=== PATIENT | female | born 1995 | race Caucasian/White ===

== ENCOUNTER 2019-01-22 20:54 | Emergency (ER) | payer OTHER ==
[2019-01-22] MEDS ORDERED: HYDROcod/ACETAM 5/325 MG TABLET PO STA (21:33)
--- NOTE | 2019-01-22 21:36 | ED Physician Documentation ---
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 She hit her head, no specific headache now and no loss of consciousness. She feels like she uriel herself. The main site of pain is the left lower ribs anterolaterally. It hurts to take a deep breath or laugh. There is no possibility of .) Review of Systems Constitutional: reports: Reviewed and negative Throat: reports: Reviewed and negative Cardiac: reports: Chest pain / pressure. denies: Palpitations, Pedal edema, Calf pain Respiratory: denies: Dyspnea, Cough PD PAST MEDICAL HISTORY - Past Medical History Past Medical History: No - Past Surgical History Past Surgical History: No - Allergies Allergies/Adverse Reactions: Allergies Allergy/AdvReac Type Severity Reaction Status Date / Time No Known Drug Allergies Allergy Verified 01/22/19 20:58 - Social History Does the pt smoke?: No Smoking Status: Never smoker Does the pt drink ETOH?: Yes Does the pt have substance abuse?: No - Immunizations Immunizations are current?: No Immunizations: TDAP >10years/unknown - POLST Patient has POLST: No PD ED PE NORMAL - Vitals Vital signs reviewed: Yes - General General: Alert and oriented X 3, No acute distress - HEENT HEENT: PERRL, EOMI - Neck Neck: Other (Very mild mid C-spine tenderness) - Cardiac Cardiac: RRR, No murmur - Respiratory Respiratory: No respiratory distress, Clear bilaterally, Other (Tender to the lower anterolateral ribs on the left without corresponding abdominal tenderness.) - Abdomen Abdomen: Soft, Non tender - Back Back: No CVA TTP, No spinal TTP - Derm Derm: Normal color, Warm and dry - Extremities Extremities: No edema, No calf tenderness / cord - Neuro Neuro: Alert and oriented X 3, Normal speech Results - Vitals Vitals: Vital Signs - 24 hr 01/22/19 01/22/19 20:58 22:46 Temperature 36.6 C 36.6 C Heart Rate 92 85 Respiratory 16 12 Rate Blood Pressure 132/92 H 123/73 O2 Saturation 97 99 Oxygen O2 Source Room air - Rads (name of study) C spine XR and L ribs and chest XR Radiology: EMP read contemporaneously (Normal) Departure - Departure Disposition: 01 Home, Self Care Clinical Impression: Contusion of chest wall, Neck sprain Condition: Good Record reviewed to determine appropriate education?: Yes Instructions: ED Contusion Chest Wall Comments: Ibuprofen as needed for pain, follow-up with your doctor in 1 week if not better. Return for new or worsening symptoms. Forms: Activity restrictions Discharge Date/Time: 01/22/19 22:48
--- NOTE | 2019-01-22 22:33 | XRAY Report ---
Reason: NECK PAIN Procedure Date: 01/22/2019 Accession Number: [id number] / [id number] Procedure: XR - Cervical Spine 2 View CPT Code: FULL RESULT: EXAM: CERVICAL SPINE RADIOGRAPHY EXAM DATE: 01/22/2019 09:59 PM. CLINICAL HISTORY: Neck pain ,fall. COMPARISONS: None. TECHNIQUE: 3 views. FINDINGS: Alignment: Normal. No spondylolisthesis or scoliosis. Bones: The cervical vertebral bodies and posterior elements are well visualized from the skull base through C7-T1. No fractures or bone lesions. Disks: Normal. Disk heights are maintained. Facets: No degenerative disease. Soft Tissues: Normal. No prevertebral soft tissue swelling. The visualized lung apices are clear. IMPRESSION: Normal cervical spine radiography. RADIA
--- NOTE | 2019-01-22 22:34 | XRAY Report ---
Reason: CHEST WALL INJ Procedure Date: 01/22/2019 Accession Number: [id number] / [id number] Procedure: XR - Ribs w/PA Chest LT CPT Code: FULL RESULT: EXAM: LEFT RIB RADIOGRAPHY. EXAM DATE: 01/22/2019 09:59 PM. CLINICAL HISTORY: Chest wall injury. Left rib pain. COMPARISON: None. TECHNIQUE: 1 view of the chest and 2 views of the ribs. FINDINGS: Bones: No displaced rib fracture seen. Lungs: No focal opacities. No gross pneumothorax or large effusion. Mediastinum: Heart and mediastinal contours are unremarkable. Other: None. IMPRESSION: No displaced rib fracture or complication from rib fracture seen. RADIA
[2019-01-22] MEDS ORDERED: HYDROcod/ACET 5/325 Prepack 4 PO STA (22:39)
[2019-01-22 22:47] VITALS: BP 123/73
== END 2019-01-22 22:48 | disposition home or self-care (01) ==
LOC: ED 20:54 → EDSEX 20:54 → ED 22:48
DX: S13.9XXA Sprain of joints and ligaments of unspecified parts of neck, initial encounter (principal); S20.212A Contusion of left front wall of thorax, initial encounter; V00.311A Fall from snowboard, initial encounter; Y93.23 Activity, snow (alpine) (downhill) skiing, snowboarding, sledding, tobogganing and snow tubing
CPT/HCPCS: 71101; 72040; 96372; 96374; 96376; 99284; A9270

== ENCOUNTER 2019-01-31 07:49 | Emergency (ER) | payer OTHER ==
[2019-01-31] MEDS ORDERED: DEXAMETHASONE 10 MG/ML VIAL PO STA (08:14)
--- NOTE | 2019-01-31 08:16 | ED Physician Documentation ---
PD HPI URI - Stated complaint Stated Complaint: COUGHING/RIB PX/FEVER - Chief complaint Chief Complaint: Resp - History obtained from History obtained from: Patient - History of Present Illness Timing - onset: How many days ago (3) Timing duration: Days (3) Timing details: Gradual onset, Still present Associated symptoms: Fever, Nasal congestion, Rhinorrhea, Sore throat, Dry cough, Chest pain, Dyspnea Contributing factors: Sick contact Improves by: Rest, Medication Similar symptoms before: Diagnosis (URI) Recently seen: Emergency Dept - Additional information Additional information: 23-year-old female has recently been seen in the emergency department for a chest wall contusion from a snowboarding accident and she is now developed a cough and congestion and the area where she contused her chest is hurting a lot. She is having some trouble breathing because of this. She is been using her inhaler and that has not helped a lot. She is has had a slight fever associated with all this. She has had 2 respiratory infections this winter the other to have resolved previously. Review of Systems Constitutional: reports: Fever Eyes: denies: Decreased vision Ears: denies: Ear pain Nose: reports: Rhinorrhea / runny nose, Congestion Throat: reports: Sore throat Cardiac: reports: Chest pain / pressure. denies: Palpitations, Pedal edema, Calf pain Respiratory: reports: Dyspnea, Cough GI: denies: Abdominal Pain, Nausea, Vomiting : denies: Dysuria, Frequency PD PAST MEDICAL HISTORY - Past Surgical History Past Surgical History: No - Present Medications Home Medications: Ambulatory Orders Medication Instructions Recorded Confirmed Amox/Clav 875/125 [Augmentin] 1 each PO Q12H #20 tablet 01/31/19 Benzonatate [Tessalon Perle] 100 - 200 mg PO TID PRN #30 capsule 01/31/19 Hydrocodone/Acetaminophen 1 - 2 each PO Q6H PRN #14 tablet 01/31/19 [Hydrocodon-Acetaminophen 5-325] - Allergies Allergies/Adverse Reactions: Allergies Allergy/AdvReac Type Severity Reaction Status Date / Time No Known Drug Allergies Allergy Verified 01/22/19 20:58 - Social History Does the pt smoke?: No Smoking Status: Never smoker Does the pt drink ETOH?: Yes Does the pt have substance abuse?: No - Immunizations Immunizations are current?: No Immunizations: TDAP >10years/unknown - POLST Patient has POLST: No PD ED PE NORMAL - Vitals Vital signs reviewed: Yes (hypertensive ) - General General: Alert and oriented X 3, Well developed/nourished, Other (coughing paroxysms are heard down the gant ) - HEENT HEENT: Atraumatic, PERRL, EOMI, Pharynx benign, Other (both TM's are mildly inflamed the right is worse than the left and there is distortion of the landmarks. ) - Neck Neck: Supple, no meningeal sign, No bony TTP - Cardiac Cardiac: RRR, No murmur - Respiratory Respiratory: No respiratory distress, Clear bilaterally, Other (There is tenderness to the lateral chest wall on the left lower. ) - Abdomen Abdomen: Soft, Non tender - Back Back: No CVA TTP, No spinal TTP - Derm Derm: Normal color, Warm and dry, No rash - Extremities Extremities: No deformity, No edema - Neuro Neuro: Alert and oriented X 3, digital marketing lead 2-12 intact, No motor deficit, No sensory deficit, Normal speech Eye Opening: Spontaneous Motor: Obeys Commands Verbal: Oriented GCS Score: 15 - Psych Psych: Normal mood, Normal affect Results - Vitals Vitals: Vital Signs - 24 hr 01/31/19 07:54 Temperature 36.2 C L Heart Rate 90 Respiratory 18 Rate Blood Pressure 127/87 H O2 Saturation 97 Oxygen O2 Source Room air PD MEDICAL DECISION MAKING - ED course Complexity details: reviewed old records, reviewed results, re-evaluated patient, considered differential, d/w patient ED course: 21-year-old female with a cough and congestion for the past several days as increased pain over an area where she has had a chest wall contusion and she has otitis on examination. She is administered dexamethasone 10 mg orally and will place her on some Augmentin and provide some analgesia as well as cough suppressant. Departure - Departure Disposition: 01 Home, Self Care Clinical Impression: Chest wall pain Otitis media Qualifiers: Otitis media type: suppurative Chronicity: acute Laterality: bilateral Recurrence: not specified as recurrent Spontaneous tympanic membrane rupture: without spontaneous rupture Qualified Code(s): H66.003 - Acute suppurative otitis media without spontaneous rupture of ear drum, bilateral Condition: Stable Instructions: ED Contusion Chest Wall, ED Otitis Media Serous Adult Follow-Up: Varinder Turner MD [Primary Care Provider] - Prescriptions: Amox/Clav 875/125 [Augmentin] 1 each PO Q12H #20 tablet Benzonatate [Tessalon Perle] 100 - 200 mg PO TID PRN #30 capsule PRN Reason: Cough Hydrocodone/Acetaminophen [Hydrocodon-Acetaminophen 5-325] 1 - 2 each PO Q6H PRN #14 tablet PRN Reason: pain Forms: Activity restrictions
[2019-01-31] MEDS ORDERED: CHERRY SYRUP 10 ML UDC PO ONE (08:30)
[2019-01-31 08:34] VITALS: BP 111/65
== END 2019-01-31 08:34 | disposition home or self-care (01) ==
LOC: ED 07:49
DX: H66.003 Acute suppurative otitis media without spontaneous rupture of ear drum, bilateral (principal); R07.89 Other chest pain; R05 Cough; R06.00 Dyspnea, unspecified; R09.81 Nasal congestion
CPT/HCPCS: 99283

== ENCOUNTER 2019-02-13 07:34 | Outpatient (CLI) | payer OTHER ==
--- NOTE | 2019-02-13 14:42 | MRI Report ---
Reason: LOW BACK PAIN Procedure Date: 02/13/2019 Accession Number: [id number] / [id number] Procedure: MRI - Lumbar Spine W/O CPT Code: FULL RESULT: EXAM: MRI LUMBAR SPINE WITHOUT CONTRAST EXAM DATE: 02/13/2019 08:54 AM. CLINICAL HISTORY: LOW BACK PAIN. COMPARISON: None. TECHNIQUE: Multiplanar, multisequence T1-weighted and fluid-sensitive sequences of the lumbar spine from T12 to S1 without contrast. Other: None. FINDINGS: Spinal Canal: The conus terminates at L1-L2. The conus medullaris and cauda equina are unremarkable. Alignment: No scoliosis or spondylolisthesis. Bone Marrow: Five [id number] lumbar vertebral bodies are assumed. No gross fractures or bone lesions. No bone marrow replacement. Disk Levels/Facets: T12-L1: Unremarkable. L1-L2: Unremarkable. L2-L3: Unremarkable. L3-L4: Unremarkable. L4-L5: Unremarkable. L5-S1: Unremarkable. Musculature: Normal. No edema or fatty atrophy. Other: The partially visualized retroperitoneum is unremarkable. IMPRESSION: Unremarkable lumbar spine MRI. Comment: The following findings are so common in adults without low back pain that while we report their presence, they must be interpreted with caution and in the context of the clinical situation. (Reference Dimasvik et al, Spine 2001) Prevalence of findings in patients without low back pain: Disk degeneration (any evidence): 92% Disk desiccation/T2 signal loss: 83% Disk height loss: 56% Disk bulge: 64% Disk protrusion: 32% Annular tear/high intensity zone: 38% RADIA
== END 2019-02-13 07:35 | disposition home or self-care (01) ==
LOC: EDSEX → DI 07:34
DX: M54.5 Low back pain (principal)
CPT/HCPCS: 72148

== ENCOUNTER 2019-02-13 11:03 | Outpatient (CLI) | payer OTHER | END 2019-02-13 11:04 | disposition home or self-care (01) | LOC: EDSEX → SC 11:03 | PROVIDERS: ATTEND Internal Medicine Pulmonary Disease | DX: G47.00 Insomnia, unspecified (principal); G47.8 Other sleep disorders | CPT/HCPCS: 99203; 99212 ==

== ENCOUNTER 2019-08-24 14:55 | Emergency (ER) | payer OTHER ==
--- NOTE | 2019-08-24 15:36 | ED Physician Documentation ---
History of Present Illness - Stated complaint Stated Complaint: RHR/DIZZY - Chief complaint Chief Complaint: Cardiac - History obtained from History obtained from: Patient - History of Present Illness Timing: How many weeks ago (1) Pain level max: 0 Pain level now: 0 (23-year-old female states that she has had intermittent heart palpitations for the past week or so. Is on Concerta and recently had her dose increased. No recent travel or surgeries. She uses Mirena for an IUD. She has been seen at [facility] several times for this. She has been in a sinus tachycardia when seen. No history of blood clots. Better with rest, worse with exertion.) Review of Systems Ten Systems: 10 systems reviewed and negative Constitutional: denies: Fever, Chills Throat: denies: Sore throat Cardiac: reports: Palpitations. 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: None : None HEENT: None Psych: ADD/ADHD Musculoskeletal: None Derm: None - Past Surgical History Past Surgical History: No - Present Medications Home Medications: Ambulatory Orders Medication Instructions Recorded Confirmed Methylphenidate HCl [Concerta] 54 mg PO DAILY 08/24/19 08/24/19 - Allergies Allergies/Adverse Reactions: Allergies Allergy/AdvReac Type Severity Reaction Status Date / Time No Known Drug Allergies Allergy Verified 08/24/19 15:05 - Social History Does the pt smoke?: No Smoking Status: Never smoker Does the pt drink ETOH?: Yes Does the pt have substance abuse?: No - Immunizations Immunizations are current?: Yes Immunizations: TDAP >10years/unknown - POLST Patient has POLST: No PD ED PE NORMAL - Vitals Vital signs reviewed: Yes - General General: Alert and oriented X 3, No acute distress, Well developed/nourished - HEENT HEENT: Moist mucous membranes - Neck Neck: Supple, no meningeal sign - Cardiac Cardiac: RRR, No murmur, Strong equal pulses - Respiratory Respiratory: No respiratory distress, Clear bilaterally - Abdomen Abdomen: Soft, Non tender, Non distended - Derm Derm: Warm and dry - Extremities Extremities: No edema, No calf tenderness / cord - Neuro Neuro: Alert and oriented X 3 - Psych Psych: Normal mood, Normal affect Results - Vitals Vitals: Vital Signs - 24 hr 08/24/19 08/24/19 08/24/19 14:56 15:20 15:22 Temperature 36.3 C L Heart Rate 95 94 Respiratory 20 15 Rate Blood Pressure 124/82 H 116/84 H Blood Pressure 116/84 H [Left] O2 Saturation 100 98 08/24/19 08/24/19 15:35 16:05 Temperature Heart Rate 89 86 Respiratory 16 15 Rate Blood Pressure 132/81 H 129/70 Blood Pressure [Left] O2 Saturation 100 99 Oxygen O2 Source Room air - EKG (time done) 1505 Rate: Rate (enter#) (105) Rhythm: Sinus tachycardia [place]: Normal Intervals: Normal [place] QRS: Normal Ischemia: Normal ST segments - Labs Labs: Laboratory Tests 08/24/19 08/24/19 08/24/19 16:03 16:03 16:03 WBC 6.6 RBC 4.31 Hgb 13.2 Hct 38.5 MCV 89.3 MCH 30.6 MCHC 34.3 RDW 11.8 L Plt Count 226 MPV 11.0 H Neut # (Auto) 3.3 Lymph # (Auto) 2.7 Arroyo # (Auto) 0.6 Eos # (Auto) 0.1 Baso # (Auto) 0.0 Absolute Nucleated RBC 0.00 Nucleated RBC % 0.0 D-Dimer < 200.0 L Sodium 137 Potassium 3.2 L Chloride 104 Carbon Dioxide 23 Anion Gap 10.0 BUN 12 Creatinine 0.6 Estimated GFR (MDRD) 125 Glucose 93 Calcium 9.1 Total Bilirubin 0.7 AST 17 ALT 14 Alkaline Phosphatase 58 Troponin I High Sens Total Protein 7.1 Albumin 4.5 Globulin 2.6 Albumin/Globulin Ratio 1.7 Lipase 25 TSH Free T4 08/24/19 08/24/19 16:03 16:03 WBC RBC Hgb Hct MCV MCH MCHC RDW Plt Count MPV Neut # (Auto) Lymph # (Auto) [place]royo # (Auto) Eos # (Auto) Baso # (Auto) Absolute Nucleated RBC Nucleated RBC % D-Dimer Sodium Potassium Chloride Carbon Dioxide Anion Gap BUN Creatinine Estimated GFR (MDRD) Glucose Calcium Total Bilirubin AST ALT Alkaline Phosphatase Troponin I High Sens < 2.3 L Total Protein Albumin Globulin Albumin/Globulin Ratio Lipase TSH 0.97 Free T4 0.91 - Rads (name of study) cxr Radiology: Prelim report reviewed, EMP read contemporaneously, See rad report (normal) PD MEDICAL DECISION MAKING - ED course Complexity details: reviewed results, re-evaluated patient, considered differential, d/w patient ED course: Patient presents to the emergency department with palpitations. Seems to be worse since taking her Concerta. We will have her decrease to her prior dose and follow-up with her doctor. No acute findings on laboratory testing, EKG or chest x-ray. No evidence of pulmonary embolus. No evidence of thyroid issues. No evidence of acute coronary syndrome. Patient counseled regarding signs and symptoms for which I believe and urgent re-evaluation would be necessary. Patient with good understanding of and agreement to plan and is comfortable going home at this time This document was made in part using voice recognition software. While efforts are made to proofread this document, sound alike and grammatical errors may occur. Departure - Departure Disposition: 01 Home, Self Care Clinical Impression: Palpitation Condition: Good Instructions: ED Palpitations Follow-Up: ARIELA CHRISTIAN MD [Primary Care Provider] - Within 1 week Comments: Your tests are normal today. Return if you worsen. You should talk to your doctor about decreasing your concerta dose or changing your medications. Discharge Date/Time: 08/24/19 17:15
--- NOTE | 2019-08-24 15:54 | XRAY Report ---
Reason: dyspnea Procedure Date: 08/24/2019 Accession Number: [id number] / [id number] Procedure: XR - Chest 2 View X-Ray CPT Code: 84486 FULL RESULT: EXAM: CHEST RADIOGRAPHY EXAM DATE: 08/24/2019 03:30 PM. CLINICAL HISTORY: Dyspnea. COMPARISON: None. TECHNIQUE: 2 views. FINDINGS: Lungs/Pleura: No focal opacities evident. No pleural effusion. No pneumothorax. Normal volumes. Mediastinum: Heart and mediastinal contours are unremarkable. Other: None. IMPRESSION: No acute intrathoracic plain film abnormality. RADIA
[2019-08-24 16:12] LABS: BASOPHILS % (AUTO) 0.3 %; EOSINOPHILS # (AUTO) 0.1 10^3/uL (0.0-0.7); EOSINOPHILS % (AUTO) 0.8 %; HGB - HEMOGLOBIN 13.2 g/dL (12.0-16.0); LYMPHOCYTES # (AUTO) 2.7 10^3/uL (1.5-3.5); LYMPHOCYTES % (AUTO) 40.9 %; MEAN CORPUSCULAR HEMOGLOBIN 30.6 pg (27.0-31.0); MEAN CORPUSCULAR HGB CONC 34.3 g/dL (32.0-36.0); MEAN CORPUSCULAR VOLUME 89.3 fL (81.0-99.0); MONOCYTES # (AUTO) 0.6 10^3/uL (0.0-1.0); MONOCYTES % (AUTO) 8.7 %; NEUTROPHILS # (AUTO) 3.3 10^3/uL (1.5-6.6); PLT - PLATELET COUNT 226 10^3/uL (130-450); RED BLOOD COUNT 4.31 10^6/uL (4.20-5.40); RED CELL DISTRIBUTION WIDTH 11.8 % (12.0-15.0); WHITE BLOOD COUNT 6.6 x10^3/uL (4.8-10.8)
[2019-08-24 16:25] LABS: ALBUMIN 4.5 g/dL (3.2-5.5); ALBUMIN/GLOBULIN RATIO 1.7 (1.0-2.2); BILIRUBIN,TOTAL 0.7 mg/dL (0.2-1.0); CALCIUM 9.1 mg/dL (8.5-10.3); CREATININE 0.6 mg/dL (0.4-1.0); TOTAL PROTEIN 7.1 g/dL (6.7-8.2)
[2019-08-24 16:44] LABS: THYROID STIMULATING HORMONE 0.97 uIU/mL (0.34-5.60)
[2019-08-24 16:46] LABS: FREE T4 (FREE THYROXINE) 0.91 ng/dL (0.58-1.64)
[2019-08-24 16:53] VITALS: BP 129/70
== END 2019-08-24 17:15 | disposition home or self-care (01) ==
LOC: ED 14:55
DX: R00.0 Tachycardia, unspecified (principal); Z97.5 Presence of (intrauterine) contraceptive device
CPT/HCPCS: 36415; 71046; 80053; 83690; 84439; 84443; 84484; 85025; 85379; 93005; 99284

== ENCOUNTER 2020-07-19 13:56 | Emergency (ER) | payer OTHER ==
[2020-07-19] MEDS ORDERED: CHERRY SYRUP 10 ML UDC PO ONE (14:22)
[2020-07-19] MEDS ORDERED: DEXAMETHASONE 10 MG/ML VIAL PO STA (14:22)
--- NOTE | 2020-07-19 14:33 | ED Physician Documentation ---
PD HPI HEENT - Stated complaint Stated Complaint: SORE THROAT - Chief complaint Chief Complaint: Heent - History obtained from History obtained from: Patient - History of Present Illness Timing - onset: How many days ago (5) Timing - duration: Days (5) Timing - details: Gradual onset, Still present Location: Throat Improves: Medication Worsens: Swalllowing Associated symptoms: Congestion. No: Fever, Rhinorrhea, Trismus, Swollen nodes, Facial swelling, Headache, Cough Similar symptoms before: Diagnosis (strep and latex allergy) Recently seen: Not recently seen - Additional information Additional information: 24-year-old female with a history of latex allergy states that she had been previously with a partner for about 2 years and had stopped using condoms and she forgot that she was allergic to latex and at the beginning of the week she states that she had sex using a condom and she subsequently developed a sore throat and swelling and she did have some vaginal swelling as well. The vaginal swelling improved with use of antihistamine Benadryl and the throat swelling did not. She has had progression of the throat swelling and she is here now for evaluation. She denies fever or otherwise feeling ill. Review of Systems Constitutional: denies: Fever, Chills, Myalgias, Fatigue Eyes: denies: Decreased vision Ears: denies: Ear pain Nose: denies: Rhinorrhea / runny nose, Congestion Throat: reports: Sore throat Cardiac: denies: Chest pain / pressure, Palpitations Respiratory: denies: Dyspnea, Cough GI: denies: Abdominal Pain, Nausea, Vomiting : denies: Dysuria, Frequency PD PAST MEDICAL HISTORY - Past Medical History Past Medical History: Yes Cardiovascular: None Respiratory: None Neuro: None Endocrine/Autoimmune: None GI: None GARDE MANAGER: None : None HEENT: None Psych: ADD/ADHD Musculoskeletal: None Derm: None - Past Surgical History Past Surgical History: No - Present Medications Home Medications: Ambulatory Orders Medication Instructions Recorded Confirmed Methylphenidate HCl [Concerta] 54 mg PO DAILY 08/24/19 08/24/19 Amoxicillin 875 mg PO BID #20 tablet 07/19/20 - Allergies Allergies/Adverse Reactions: Allergies Allergy/AdvReac Type Severity Reaction Status Date / Time cat dander Allergy Hives Verified 07/19/20 14:11 latex Allergy Itching Verified 07/19/20 14:11 orange Allergy Hives Verified 07/19/20 14:12 - Social History Does the pt smoke?: No Smoking Status: Never smoker Does the pt drink ETOH?: Yes Does the pt have substance abuse?: No - Immunizations Immunizations are current?: Yes Immunizations: TDAP >10years/unknown - POLST Patient has POLST: No PD ED PE NORMAL - Vitals Vital signs reviewed: Yes (hypertensive ) - General General: Alert and oriented X 3, No acute distress, Well developed/nourished - HEENT HEENT: Atraumatic, PERRL, EOMI, Other (left TM is inflamed with intact landmarks. right is clear. pharynx is with 2+ tonsils and marked angry erythema to the soft pallet and tonsillar pillars. ) - Neck Neck: Supple, no meningeal sign, No bony TTP - Cardiac Cardiac: RRR, No murmur - Respiratory Respiratory: No respiratory distress, Clear bilaterally - Abdomen Abdomen: Soft, Non tender - Derm Derm: Normal color, Warm and dry, No rash - Extremities Extremities: No deformity, No edema - Neuro Neuro: Alert and oriented X 3, book jogger 2-12 intact, No motor deficit, No sensory deficit, Normal speech Eye Opening: Spontaneous Motor: Obeys Commands Verbal: Oriented GCS Score: 15 - Psych Psych: Normal mood, Normal affect Results - Vitals Vitals: Vital Signs - 24 hr 07/19/20 07/19/20 14:06 15:15 Temperature 36.6 C 36.8 C Heart Rate 86 85 Respiratory 15 16 Rate Blood Pressure 134/91 H 113/78 O2 Saturation 100 99 Oxygen O2 Source Room air - Labs Labs: Laboratory Tests 07/19/20 14:20 Group A Strep Rapid POSITIVE H PD MEDICAL DECISION MAKING - ED course Complexity details: reviewed old records, reviewed results, re-evaluated patient, considered differential, d/w patient ED course: 24-year-old female with significant pharyngeal erythema and swelling has a positive strep screen. She is administered dexamethasone 10 mg orally we will place her on some amoxicillin. Departure - Departure Disposition: 01 Home, Self Care Clinical Impression: Strep pharyngitis Otitis media Qualifiers: Otitis media type: suppurative Chronicity: acute Laterality: left Recurrence: non-recurrent Spontaneous tympanic membrane rupture: without spontaneous rupture Qualified Code(s): H66.002 - Acute suppurative otitis media without spontaneous rupture of ear drum, left ear Condition: Stable Instructions: ED Otitis Media Acute Adult, ED Strep Pharyngitis Conf Follow-Up: ARIELA CHRISTIAN MD [Primary Care Provider] - Prescriptions: Amoxicillin 875 mg PO BID #20 tablet Discharge Date/Time: 07/19/20 15:18
[2020-07-19 14:47] LABS: RAPID STREP SCREEN POSITIVE (Negative)
[2020-07-19 15:18] VITALS: BP 113/78
== END 2020-07-19 15:18 | disposition home or self-care (01) ==
LOC: ED 13:56
DX: J02.9 Acute pharyngitis, unspecified (principal); H66.002 Acute suppurative otitis media without spontaneous rupture of ear drum, left ear
CPT/HCPCS: 87430; 99283; 99284; A9270

== ENCOUNTER 2020-07-30 07:31 | Emergency (ER) | payer OTHER ==
--- NOTE | 2020-07-30 07:59 | ED Physician Documentation ---
PD HPI FEMALE - Stated complaint Stated Complaint: FEMALE - Chief complaint Chief Complaint: General - History obtained from History obtained from: Patient - History of Present Illness Timing - onset: How many days ago (2-3 days of vaginal burning, white exudate and tenderness. Some bump lesions on upper thighs. Rx with Amox for a week for strep throat (unclear if culture done) and so she thought yeast infection likely. New sexual partner in past couple weeks. Take oral OCPs. No condom use, some paints/lube used.) Timing - duration: Days Timing - details: Gradual onset, Still present Associated symptoms: Vaginal pain, Vaginal discharge, Genital sore/lesion. No: Fever, Dysuria Contributing factors: Oral contraceptive, Sexually active. 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 : None HEENT: None Psych: ADD/ADHD Musculoskeletal: None Derm: None - Past Surgical History Past Surgical History: No - Present Medications Home Medications: Ambulatory Orders Medication Instructions Recorded Confirmed Methylphenidate HCl [Concerta] 54 mg PO DAILY 08/24/19 08/24/19 Amoxicillin 875 mg PO BID #20 tablet 07/19/20 Doxycycline Monohydrate 100 mg PO BID #14 tablet 07/30/20 Fluconazole [Diflucan] 150 mg PO Q2D #3 tablet 07/30/20 Hydrocodone/Acetaminophen [[place] 1 each PO Q6H PRN #10 tablet 07/30/20 5-325 Tablet] Ondansetron Odt [Zofran] 4 mg TL Q6H PRN #10 tablet 07/30/20 lidocaine HCL [Lidocaine HCl] 1 applic TP Q6H PRN #30 cream..g. 07/30/20 - Allergies Allergies/Adverse Reactions: Allergies Allergy/AdvReac Type Severity Reaction Status Date / Time cat dander Allergy Hives Verified 07/30/20 07:50 latex Allergy Itching Verified 07/30/20 07:50 orange Allergy Hives Verified 07/30/20 07:50 - Social History Does the pt smoke?: No Smoking Status: Never smoker Does the pt drink ETOH?: Yes Does the pt have substance abuse?: No - Immunizations Immunizations are current?: Yes Immunizations: TDAP >10years/unknown - POLST Patient has POLST: No PD ED PE NORMAL - Vitals Vital signs reviewed: Yes - General General: Alert and oriented X 3, No acute distress, Well developed/nourished - Abdomen Abdomen: Soft, Non tender - Female Female : 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 Inner labia with white exudate and superfic erosion. Vault copious yellow discharge and tenderness.) - Back Back: No CVA TTP - Derm Derm: Normal color, Warm and dry Results - Vitals Vitals: Vital Signs - 24 hr 07/30/20 07/30/20 07:32 09:42 Temperature 36.6 C Heart Rate 100 84 Respiratory 18 16 Rate Blood Pressure 124/72 102/64 O2 Saturation 100 97 Oxygen O2 Source Room air - Labs Labs: Laboratory Tests 07/30/20 08:45 C. glabrata (PCR) NEGATIVE C. krusei (PCR) NEGATIVE Lori species DNA NEGATIVE T. vaginalis (PCR) NEGATIVE Bact Vaginosis (PCR) NEGATIVE PD MEDICAL DECISION MAKING - ED course Complexity details: considered differential (the raised lesions around labia and on upper thighs looks like molluscum. vulvar redness and exudate c/w yeast, and then the vault has copious discharge yellow. Presume bacterial. Pending cultures. ), d/w patient Departure - Departure Disposition: 01 Home, Self Care Clinical Impression: Vaginal yeast infection, Bacterial vaginitis, Anogenital molluscum contagiosum Condition: Stable Record reviewed to determine appropriate education?: Yes Instructions: ED Vaginosis Bacterial, ED Vaginal Infec Fungal Lori Follow-Up: ARIELA CHRISTIAN MD [Primary Care Provider] - Prescriptions: Fluconazole [Diflucan] 150 mg PO Q2D #3 tablet Doxycycline Monohydrate 100 mg PO BID #14 tablet lidocaine HCL [Lidocaine HCl] 1 applic TP Q6H PRN #30 cream..g. PRN Reason: Pain Hydrocodone/Acetaminophen [[place] 5-325 Tablet] 1 each PO Q6H PRN #10 tablet PRN Reason: Pain Ondansetron Odt [Zofran] 4 mg TL Q6H PRN #10 tablet PRN Reason: Nausea / Vomiting Comments: Use pain medicine such as ibuprofen 3 times a day. To that add Tylenol or hydrocodone if needed for pain in the short-term. Lidocaine topically to help with some of the sores. The vaginal area and labia look to be yeast infection with some mucosal breakdown. We can treat this with Diflucan every other day for a week. It does look potentially like some bacterial infection in the vaginal vault. We will start treating with doxycycline twice daily for a week. The culture results and a couple of days may signify other germs and we would call you if we need to change the antibiotics. The skin bumps on the outside and on your thigh looked possibly like a viral infection called molluscum contagiosum. This is usually self-limited but may take a month or 2 for them to go away. They potentially can be frozen off if they are bothersome but otherwise are not a long-term problem. Follow-up with your primary care in about a week, call for an appointment. Off duty today and tomorrow due to symptoms. Forms: Activity restrictions Discharge Date/Time: 07/30/20 09:51
[2020-07-30] MEDS ORDERED: ACETAMINOPHEN 325 MG TABLET PO STA (08:49)
[2020-07-30] MEDS ORDERED: LIDOCAINE 1% 2 ML VIAL MC ONE (08:49)
[2020-07-30] MEDS ORDERED: ONDANSETRON ODT 4 MG TABLET TL STA (08:49)
[2020-07-30] MEDS ORDERED: IBUPROFEN 600 MG TABLET PO STA (08:49)
[2020-07-30] MEDS ORDERED: cefTRIAXone 1 GM VIAL IM STA (08:49)
[2020-07-30] MEDS ORDERED: FLUCONAZOLE 100 MG TABLET PO STA (08:49)
[2020-07-30] MEDS ORDERED: DOXYCYCLINE 100 MG TABLET PO STA (08:50)
[2020-07-30] MEDS ORDERED: LIDOCAINE JELLY 2% 6 ML JEL.PF.APP TOP STA (09:34)
[2020-07-30 09:43] VITALS: BP 102/64
[2020-07-30 10:51] LABS: CANDIDA GROUP DNA NEGATIVE (NEGATIVE); CANDIDA KRUSEI DNA NEGATIVE (NEGATIVE); TRICHOMONAS VAGINALIS DNA NEGATIVE (NEGATIVE)
== END 2020-07-30 09:51 | disposition home or self-care (01) ==
LOC: ED 07:31
DX: B37.3 Candidiasis of vulva and vagina (principal); N76.0 Acute vaginitis; B96.89 Other specified bacterial agents as the cause of diseases classified elsewhere; B08.1 Molluscum contagiosum
CPT/HCPCS: 81599; 87481; 87661; 87801; 96372; 99283; 99284; A9270; Q0162; 87491; 87591

== ENCOUNTER 2020-08-31 01:53 | Outpatient (CLI) | payer OTHER | END 2020-08-31 01:54 | disposition critical access hospital (66) | LOC: EMS 01:53 | PROVIDERS: ATTEND Surgery | DX: R10.84 Generalized abdominal pain (principal); R11.10 Vomiting, unspecified | CPT/HCPCS: A0425; A0427 ==

== ENCOUNTER 2020-08-31 02:11 | Emergency (ER) | payer OTHER ==
[2020-08-31] MEDS ORDERED: SODIUM CHLORIDE 0.9% 1,000 ML IV STA (02:54)
[2020-08-31] MEDS ORDERED: ONDANSETRON 4 MG/2 ML VIAL IVP STA (02:54)
[2020-08-31 04:05] LABS: BASOPHILS % (AUTO) 0.3 %; EOSINOPHILS # (AUTO) 0.1 10^3/uL (0.0-0.7); EOSINOPHILS % (AUTO) 0.9 %; LYMPHOCYTES # (AUTO) 0.9 10^3/uL (1.5-3.5); LYMPHOCYTES % (AUTO) 9.1 %; MEAN CORPUSCULAR HEMOGLOBIN 30.8 pg (27.0-31.0); MEAN CORPUSCULAR HGB CONC 33.3 g/dL (32.0-36.0); MEAN CORPUSCULAR VOLUME 92.3 fL (81.0-99.0); MEAN PLATELET VOLUME 10.6 fL (7.9-10.8); MONOCYTES % (AUTO) 9.2 %; NEUTROPHILS # (AUTO) 8.3 10^3/uL (1.5-6.6); NEUTROPHILS % (AUTO) 80.1 %; PLT - PLATELET COUNT 179 10^3/uL (130-450); RED CELL DISTRIBUTION WIDTH 12.8 % (12.0-15.0); WHITE BLOOD COUNT 10.3 x10^3/uL (4.8-10.8)
[2020-08-31 04:27] LABS: ALBUMIN 3.7 g/dL (3.2-5.5); ALBUMIN/GLOBULIN RATIO 1.4 (1.0-2.2); BILIRUBIN,TOTAL 0.7 mg/dL (0.2-1.0); CALCIUM 8.8 mg/dL (8.5-10.3); CREATININE 0.5 mg/dL (0.4-1.0); TOTAL PROTEIN 6.4 g/dL (6.7-8.2)
[2020-08-31 04:36] LABS: HCG,QUALITATIVE BLOOD NEGATIVE
[2020-08-31 05:42] LABS: MUDS CUTOFF CONCENTRATIONS CUTOFF CONC BELOW:
--- NOTE | 2020-08-31 05:47 | ED Physician Documentation ---
History of Present Illness - Stated complaint Stated Complaint: ABD PX - Chief complaint Chief Complaint: Abd Pain - History obtained from History obtained from: Patient - Additonal information Additional information: Patient presents with complaints of constipation and abdominal pain. She recently underwent surgery on her right ankle and foot. She was prescribed oxycodone. Additionally, she reports a history of irritable bowel syndrome and is often constipated. Her stools have been nonbloody without tar-like appearance. She took an OTC laxative and subsequently developed abdominal cramping. She continues to strain to have a bowel movement. She has had no fevers, chills or sweats. She does report some mild nausea. When asked where her pain is located she says throughout her abdomen. She describes it as cramping and intermittent. Review of Systems Constitutional: reports: Reviewed and negative Eyes: reports: Reviewed and negative Ears: reports: Reviewed and negative Nose: reports: Reviewed and negative Throat: reports: Reviewed and negative Cardiac: reports: Reviewed and negative Respiratory: reports: Reviewed and negative GI: reports: Abdominal Pain, Nausea, Constipation. denies: Abdominal Swelling, Vomiting, Diarrhea, Hematemesis, Bloody / black stool : reports: Reviewed and negative. denies: Dysuria Skin: reports: Reviewed and negative Musculoskeletal: reports: Joint pain Neurologic: reports: Reviewed and negative Psychiatric: reports: Reviewed and negative Endocrine: reports: Reviewed and negative Immunocompromised: reports: Reviewed and negative PD PAST MEDICAL HISTORY - Past Medical History Cardiovascular: None Respiratory: None Neuro: None Endocrine/Autoimmune: None GI: Other CARPENTER RAILCAR: None : None HEENT: None Psych: ADD/ADHD Musculoskeletal: None Derm: None Other Past Medical History: IBS - Past Surgical History Past Surgical History: Yes - Present Medications Home Medications: Ambulatory Orders Medication Instructions Recorded Confirmed Methylphenidate HCl [Concerta] 54 mg PO DAILY 08/24/19 08/24/19 Amoxicillin 875 mg PO BID #20 tablet 07/19/20 Doxycycline Monohydrate 100 mg PO BID #14 tablet 07/30/20 Fluconazole [Diflucan] 150 mg PO Q2D #3 tablet 07/30/20 Hydrocodone/Acetaminophen [[place] 1 each PO Q6H PRN #10 tablet 07/30/20 5-325 Tablet] Ondansetron Odt [Zofran] 4 mg TL Q6H PRN #10 tablet 07/30/20 lidocaine HCL [Lidocaine HCl] 1 applic TP Q6H PRN #30 cream..g. 07/30/20 Docusate Sodium 100Mg Capsule 200 mg PO DAILY #7 capsule 08/31/20 [Colace 100Mg Capsule] - Allergies Allergies/Adverse Reactions: Allergies Allergy/AdvReac Type Severity Reaction Status Date / Time cat dander Allergy Hives Verified 07/30/20 07:50 latex Allergy Itching Verified 07/30/20 07:50 orange Allergy Hives Verified 07/30/20 07:50 - Social History Does the pt smoke?: No Smoking Status: Never smoker Does the pt drink ETOH?: Yes Does the pt have substance abuse?: No - Immunizations Immunizations are current?: Yes Immunizations: TDAP >10years/unknown - POLST Patient has POLST: No PD ED PE NORMAL - Vitals Vital signs reviewed: Yes - General General: No acute distress - HEENT HEENT: PERRL - Neck Neck: Supple, no meningeal sign - Cardiac Cardiac: RRR, No murmur - Respiratory Respiratory: Clear bilaterally - Abdomen Abdomen: Normal bowel sounds, Soft, Non tender, Non distended, No organomegaly - Derm Derm: Warm and dry - Extremities Extremities: No deformity, No calf tenderness / cord, Other (Walker boot in place - right) - Neuro Neuro: Alert and oriented X 3 - Psych Psych: Normal mood, Normal affect Results - Vitals Vitals: Vital Signs - 24 hr 08/31/20 08/31/20 02:20 04:31 Temperature 36.5 C Heart Rate 87 Respiratory 18 17 Rate Blood Pressure 129/95 H 116/77 O2 Saturation 100 100 Oxygen O2 Source Room air - Labs Labs: Laboratory Tests 08/31/20 08/31/20 08/31/20 04:00 04:00 04:00 WBC 10.3 RBC 3.90 L Hgb 12.0 Hct 36.0 L MCV 92.3 MCH 30.8 MCHC 33.3 RDW 12.8 Plt Count 179 MPV 10.6 Neut # (Auto) 8.3 H Lymph # (Auto) 0.9 L M[place]racken # (Auto) 1.0 Eos # (Auto) 0.1 Baso # (Auto) 0.0 Absolute Nucleated RBC 0.00 Nucleated RBC % 0.0 Sodium 138 Potassium 4.0 Chloride 104 Carbon Dioxide 26 Anion Gap 8.0 BUN 16 Creatinine 0.5 Estimated GFR (MDRD) 153 Glucose 114 H Calcium 8.8 Total Bilirubin 0.7 AST 22 ALT 27 Alkaline Phosphatase 49 Total Protein 6.4 L Albumin 3.7 Globulin 2.7 Albumin/Globulin Ratio 1.4 Lipase 16 L Serum HCG, Qual NEGATIVE Urine Color Urine Clarity Urine pH Ur Specific [place] Urine Protein Urine Glucose (UA) Urine Ketones Urine Occult Blood Urine Nitrite Urine Bilirubin Urine Urobilinogen Ur Leukocyte Esterase Ur Microscopic Review Urine Culture Comments Urine Opiates Screen Ur Oxycodone Screen Urine Methadone Screen Ur Propoxyphene Screen Ur Barbiturates Screen Ur Tricyclics Screen Ur Phencyclidine Scrn Ur Amphetamine Screen U Methamphetamines Scrn U Benzodiazepines Scrn Urine Cocaine Screen U Cannabinoids Screen 08/31/20 05:30 WBC RBC Hgb Hct MCV MCH MCHC RDW Plt Count MPV Neut # (Auto) Lymph # (Auto) M[place]rack[place] # (Auto) Eos # (Auto) Baso # (Auto) Absolute Nucleated RBC Nucleated RBC % Sodium Potassium Chloride Carbon Dioxide Anion Gap BUN Creatinine Estimated GFR (MDRD) Glucose Calcium Total Bilirubin AST ALT Alkaline Phosphatase Total Protein Albumin Globulin Albumin/Globulin Ratio Lipase Serum HCG, Qual Urine Color YELLOW Urine Clarity CLEAR Urine pH 7.0 Ur Specific [place] 1.020 Urine Protein NEGATIVE Urine Glucose (UA) NEGATIVE Urine Ketones NEGATIVE Urine Occult Blood NEGATIVE Urine Nitrite NEGATIVE Urine Bilirubin NEGATIVE Urine Urobilinogen 0.2 (NORMAL) Ur Leukocyte Esterase NEGATIVE Ur Microscopic Review NOT INDICATED Urine Culture Comments NOT INDICATED Urine Opiates Screen NEGATIVE Ur Oxycodone Screen POSITIVE H Urine Methadone Screen NEGATIVE Ur Propoxyphene Screen NEGATIVE Ur Barbiturates Screen NEGATIVE Ur Tricyclics Screen NEGATIVE Ur Phencyclidine Scrn NEGATIVE Ur Amphetamine Screen NEGATIVE U Methamphetamines Scrn NEGATIVE U Benzodiazepines Scrn NEGATIVE Urine Cocaine Screen NEGATIVE U Cannabinoids Screen NEGATIVE PD MEDICAL DECISION MAKING - ED course Complexity details: reviewed old records, d/w patient, other ED course: I reviewed the results of the patient's studies with her. Clinically, it appears that she is suffering from constipation. We discussed the pathophysiology of this. I suggested that we could consider obtaining a CT of her abdomen. We discussed the potential benefits and risks of this. She requests that this not be performed at this time. She acknowledges the risk of a missed or erroneous diagnosis. She was instructed in the appropriate use of an enema and I recommended that she use a stool softener and avoid harsh laxatives. 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 Departure - Departure Disposition: 01 Home, Self Care Clinical Impression: Constipation Qualifiers: Constipation type: drug induced constipation Qualified Code(s): K59.03 - Drug induced constipation Condition: Stable Record reviewed to determine appropriate education?: Yes Instructions: ED Constipation Follow-Up: ARIELA CHRISTIAN MD [Primary Care Provider] - Within 3 Days Prescriptions: Docusate Sodium 100Mg Capsule [Colace 100Mg Capsule] 200 mg PO DAILY #7 capsule Comments: Consider the use of an OTC Fleet enema. Also, discontinue the use of oxycodone. Increase the amount of fiber and fluids in your diet.
[2020-08-31 05:51] LABS: BILIRUBIN,URINE NEGATIVE (NEGATIVE); GLUCOSE, URINE (UA) NEGATIVE (NEGATIVE); KETONES,URINE (UA) NEGATIVE (NEGATIVE); LEUKOCYTE ESTERASE, URINE NEGATIVE (NEGATIVE); NITRITE,URINE NEGATIVE (NEGATIVE); OCCULT BLOOD,URINE NEGATIVE (NEGATIVE); PROTEIN,URINE NEGATIVE (NEGATIVE); UROBILINOGEN,URINE 0.2 (NORMAL) E.U./dL (NORMAL)
[2020-08-31 06:10] LABS: CLARITY,URINE CLEAR (CLEAR)
[2020-08-31 06:11] LABS: AMPHETAMINE SCREEN,URINE NEGATIVE (NEGATIVE); BENZODIAZEPINES SCREEN, URINE NEGATIVE (NEGATIVE); COCAINE SCREEN URINE NEGATIVE (NEGATIVE); METHADONE SCREEN, URINE NEGATIVE (NEGATIVE); METHAMPHETAMINES SCREEN, URINE NEGATIVE (NEGATIVE); OPIATE SCREEN, URINE NEGATIVE (NEGATIVE); OXYCODONE SCREEN, URINE POSITIVE (NEGATIVE); PROPOXYPHENE SCREEN, URINE NEGATIVE (NEGATIVE); TRICYCLIC ANTIDEPRESSANT,URINE NEGATIVE (NEGATIVE)
[2020-08-31 06:59] VITALS: BP 111/72
--- NOTE | 2020-08-31 09:57 | XRAY Report ---
PROCEDURE: Abdomen 1 View X-Ray INDICATIONS: constipation TECHNIQUE: 1 view of the abdomen were acquired. COMPARISON: 01/22/2019. Correlation is also made with the FINDINGS: Surgical changes and devices: An IUD is seen at the expected location. Although it appears somewhat tipped. Please correlate with uterine anatomy. Bowel: No pneumoperitoneum. The bowel gas pattern is normal. Is a moderate amount of stool seen wi thin the distal colon. There is potential bowel wall thickening seen distally. Soft tissues: No masses; visualized solid organ contours appear normal in size. No suspicious abdom inal calcifications. Bones: No suspicious bony abnormalities. Mild levoconvex scoliotic curvature is seen. IMPRESSION: A mild amount of stool is seen within the distal colon. Potential bowel wall thickening is seen distally. Please correlate with colitis. If clinically approp riate, a dedicated CT could be considered for further evaluation. An IUD is seen, which appears tipped. Please correlate with uterine anatomy. If clinically appropriat e, a pelvic ultrasound or a gynecologic consultation could be considered. Note: No significant discrepancy from the preliminary report. Reviewed by: Alexandre Clifton MD on 08/31/2020 8:56 AM [place] Approved by: Alexandre Clifton MD on 08/31/2020 8:56 AM [place] Station ID: [id number]
== END 2020-08-31 07:12 | disposition home or self-care (01) ==
LOC: EDUNIT# → ED 02:11
DX: K59.03 Drug induced constipation (principal); T40.2X5A Adverse effect of other opioids, initial encounter; Z98.890 Other specified postprocedural states; Z87.19 Personal history of other diseases of the digestive system
CPT/HCPCS: 36415; 74018; 80053; 80306; 81001; 81003; 83690; 84703; 85025; 87086; 96374; 99284